=== PATIENT | male | born 1975 | race Caucasian/White ===

== ENCOUNTER 2018-08-12 11:26 | Emergency (ER) | payer OTHER, SELFPAY ==
[2018-08-12 11:29] VITALS: BP 147/113; PULSE 97; RESP 20; TEMP 36.8; O2SAT 95
--- NOTE | 2018-08-12 13:38 | ED_ITS ---
HPI - Headache <PINKY Roca - Last Filed: 08/12/18 21:41> General Chief Complaint: Headache Stated Complaint: HEADACHE, BODY PAIN, NAUSEA Time Seen by Provider: 08/12/18 13:36 Source: patient Mode of arrival: ambulatory Limitations: no limitations History of Present Illness HPI Narrative: 42-year-old male with history of hypertension and melanoma that is a part-time smoker here for complaint of headache that started yesterday and is worse today. 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 He was treated by Oncology in [place] prior to moving appear he just recently moved to the area and has not been established in Oncology. He reports having headaches like this in the past over this when presents as being more severe. He denies any neurological deficits. No fevers no chills. Pain does radiate to the neck. Positive p.o. intake. Related Data Home Medications Medication Instructions Recorded Confirmed Stool Softener 1 dose PO PRN PRN 08/12/18 08/12/18 Vitamin C 1 tab PO DAILY 08/12/18 08/12/18 dexamethasone 4 mg PO BID-QID 08/12/18 08/12/18 hydrochlorothiazide 25 mg PO DAILY 08/12/18 08/12/18 hydrocodone-acetaminophen 1 tab PO TID PRN 08/12/18 08/12/18 ibuprofen 1 dose PO PRN PRN 08/12/18 08/12/18 methadone 20 mg PO Q8H 08/12/18 08/12/18 multivitamin 1 tab PO DAILY 08/12/18 08/12/18 omeprazole 40 mg PO DAILY 08/12/18 08/12/18 pembrolizumab [Keytruda] 1 dose IV DIRECTED 08/12/18 08/12/18 sennosides [senna] 8.6 mg PO BID 08/12/18 08/12/18 trazodone 100 mg PO BEDTIME 08/12/18 08/12/18 Allergies Allergy/AdvReac Type Severity Reaction Status Date / Time No Known Drug Allergies Allergy Verified 08/12/18 11:29 Review of Systems <PINKY Roca - Last Filed: 08/12/18 21:41> Constitutional Denies chills, Denies fever(s), Reports headache(s), Denies lethargy and Denies weakness Eyes Denies change in vision, Denies eye discharge, Denies irritation and Denies loss of vision ENT Ears, Nose, Mouth, and Throat: Denies change in voice, Reports headache(s), Denies neck pain and Denies sore throat Cardiovascular Denies chest pain, Denies irregular heart rhythm, Denies lightheadedness, Denies palpitations, Denies dyspnea, Denies dyspnea on exertion and Denies orthopnea Respiratory Denies cough, Denies dyspnea, Denies dyspnea on exertion and Denies wheezing Gastrointestinal Gastrointestinal: Denies abdominal pain, Denies change in bowel habits, Denies diarrhea, Denies nausea and Denies vomiting Genitourinary Denies hematuria, Denies flank pain, Denies urinary incontinence and Denies urinary urgency Musculoskeletal Denies neck pain Integumentary/Breasts Denies pruritus, Denies erythema, Denies rash and Denies wounds Neurologic Denies confusion, Reports headache(s), Denies loss of vision and Denies weakness Psychiatric Denies anxiety, Denies confusion, Denies depression, Denies homicidal ideation and Denies suicidal ideation Endocrine Denies palpitations Hematologic/Lymphatic Denies easy bruising Allergic/Immunologic Denies wheezing Exam <PINKY Roca - Last Filed: 08/12/18 21:41> Initial Vital Signs Initial Vital Signs: Vital Signs Temperature 98.3 F 08/12/18 11:29 Pulse Rate 97 H 08/12/18 11:29 Respiratory Rate 20 08/12/18 11:29 Blood Pressure 147/113 H 08/12/18 11:29 Pulse Oximetry 95 08/12/18 11:29 Const General: cooperative and well developed Nutritional Appearance: well nourished Orientation: alert, awake, oriented x3 and not confused [facility] Mouth: oral mucosae normal and moist mucous membranes Eyes General: appearance normal, both eyes and all related structures Eyelids: eyelids normal Conjunctivae: conjunctivae normal Sclera: sclerae normal Pupils: PERRL EOM: EOM intact bilaterally Neck Neck: normal visual inspection, trachea midline, No lymphadenopathy, No midline deformity and No JVD Lymphatic: No lymphedema Cardio Rate: regular rate Rhythm: regular rhythm Heart Sounds: no click, no gallops, no murmurs and no rubs GI Inspection: non-distended Palpation: soft, no hepatosplenomegaly, No guarding, No pulsatile mass and No tender Auscultation: normal bowel sounds Neuro General: alert, oriented x3, gait normal and no focal motor deficits Speech: speech normal Sensory Exam: no sensory deficits noted Extrem General: normal to inspection, full ROM, no clubbing, cyanosis or edema, no pedal edema and no calf tenderness <Rhonda Portillo DO - Last Filed: 08/13/18 09:07> Initial Vital Signs Initial Vital Signs: Vital Signs Temperature 98.3 F 08/12/18 11:29 Pulse Rate 97 H 08/12/18 11:29 Respiratory Rate 20 08/12/18 11:29 Blood Pressure 147/113 H 08/12/18 11:29 Pulse Oximetry 95 08/12/18 11:29 Course <PINKY Roca - Last Filed: 08/12/18 21:41> Orders Ordered: Discontinued Medications Diphenhydramine HCl (Benadryl) 25 mg IV NOW ONE Stop: 08/12/18 14:31 Last Admin: 08/12/18 15:16 Dose: 25 mg Hydromorphone HCl (Dilaudid) 1 mg IV NOW ONE Stop: 08/12/18 14:31 Last Admin: 08/12/18 15:18 Dose: 1 mg Sodium Chloride (Normal Saline 0.9%) 1,000 mls @ 1,000 mls/hr IV BOLUS ONE Stop: 08/12/18 15:29 Last Infusion: 08/12/18 16:35 Dose: 0 mls/hr Admin: 08/12/18 15:11 Dose: 1,000 mls/hr Ketorolac Tromethamine (Toradol) 30 mg IV NOW ONE Stop: 08/12/18 14:31 Last Admin: 08/12/18 15:17 Dose: 30 mg Metoclopramide HCl (Reglan) 10 mg IV NOW ONE Stop: 08/12/18 14:31 Last Admin: 08/12/18 15:14 Dose: 10 mg Vital Signs - 8 hr 08/12/18 15:29 08/12/18 16:37 08/12/18 16:48 Temperature 98.4 F Pulse Rate 67 66 Respiratory Rate 18 13 Blood Pressure [Right Arm] 124/98 H 127/82 Pulse Oximetry 94 97 08/12/18 17:14 Temperature Pulse Rate 54 L Respiratory Rate 18 Blood Pressure [Right Arm] 153/85 H Pulse Oximetry 97 <Rhonda Portillo DO - Last Filed: 08/13/18 09:07> Orders Ordered: Discontinued Medications Diphenhydramine HCl (Benadryl) 25 mg IV NOW ONE Stop: 08/12/18 14:31 Last Admin: 08/12/18 15:16 Dose: 25 mg Hydromorphone HCl (Dilaudid) 1 mg IV NOW ONE Stop: 08/12/18 14:31 Last Admin: 08/12/18 15:18 Dose: 1 mg Sodium Chloride (Normal Saline 0.9%) 1,000 mls @ 1,000 mls/hr IV BOLUS ONE Stop: 08/12/18 15:29 Last Infusion: 08/12/18 16:35 Dose: 0 mls/hr Admin: 08/12/18 15:11 Dose: 1,000 mls/hr Ketorolac Tromethamine (Toradol) 30 mg IV NOW ONE Stop: 08/12/18 14:31 Last Admin: 08/12/18 15:17 Dose: 30 mg Metoclopramide HCl (Reglan) 10 mg IV NOW ONE Stop: 08/12/18 14:31 Last Admin: 08/12/18 15:14 Dose: 10 mg Vital Signs - 8 hr 08/12/18 15:29 08/12/18 16:37 08/12/18 16:48 Temperature 98.4 F Pulse Rate 67 66 Respiratory Rate 18 13 Blood Pressure [Right Arm] 124/98 H 127/82 Pulse Oximetry 94 97 08/12/18 17:14 Temperature Pulse Rate 54 L Respiratory Rate 18 Blood Pressure [Right Arm] 153/85 H Pulse Oximetry 97 MDM - Headache <PINKY Roca - Last Filed: 08/12/18 21:41> Lab Data Result diagrams: 08/12/18 15:05 08/12/18 15:05 Lab Results 08/12/18 08/12/18 08/12/18 Range/Units 15:05 15:05 15:05 WBC 14.4 H (4.5-11.0) X10^3/uL RBC 5.28 (4.5-5.9) X10^6/uL Hgb 16.3 (13.5-17.5) g/dL Hct 47.9 (41-53) % MCV 90.8 (80-100) fL MCH 30.8 (26-34) PG MCHC 33.9 (30-36) % RDW 13.9 (11.6-14.8) % Plt Count 236 (150-400) X10^3/uL Neut % (Auto) 71.3 (50-75) % Lymph % (Auto) 18.6 L (25-40) % [place] % (Auto) 9.4 (3-14) % Eos % (Auto) 0.1 L (2-4) % Baso % (Auto) 0.6 (0-2) % Neut # (Auto) 53507 H (9158-5799) /uL PT 11.7 (10.1-12.7) SECONDS INR 1.1 (0.9-1.3) Sodium 143 (137-145) mmol/L Potassium 3.7 (3.4-5.1) mmol/L Chloride 101 (98-107) mmol/L Carbon Dioxide 31 (22-32) mmol/L BUN 28 H (9-20) mg/dL Creatinine 0.70 (0.66-1.25) mg/dL Estimated GFR > 60.0 (>60) mL/min BUN/Creatinine Ratio 40.0 H (6-22) Glucose 121 H (70-100) mg/dL Calcium 9.5 (8.4-10.2) mg/dL Total Bilirubin 1.0 (0.2-1.3) mg/dL AST 38 (17-59) IU/L ALT 62 (21-72) IU/L Alkaline Phosphatase 49 (38-126) U/L Total Protein 7.4 (6.3-8.2) g/dL Albumin 4.4 (3.5-5.0) g/dL Globulin 3.0 (1.7-4.1) g/dL Albumin/Globulin Ratio 1.5 (1.0-2.8) Point of Care Testing Glucose POC [address] scan - head: Radiologist's impression: [address] [address] [address] Scan Report Signed Patient: Ramiro Hawkins SosaAnel#: [id number] : 1975Acct:[id number] Age/Sex: 42 / MDate of Service: 08/12/18 Loc: ED Accession Number: [id number] Procedure: CT head/brain wo con Ordering Provider: Ambrocio Mujica PROCEDURE: CT HEAD/BRAIN WO CON INDICATIONS: Headache with history of brain cancer TECHNIQUE: Noncontrast 4.5 mm thick angled axial sections acquired from the foramen magnum to the vertex, with coronal and sagittal reformats. For radiation dose reduction, the following was used: automated exposure control, adjustment of mA and/or kV according to patient size. COMPARISON: [facility], CT, CT CERVICAL SPINE WO CON, 08/12/2018, 14:30. FINDINGS: Image quality: Excellent. CSF spaces: Basal cisterns are patent. No extra-axial fluid collections. No janes hydrocephalus is seen. There is expansion seen of the posterior horn of the left lateral ventricle, which is attributed to extra-axial dilatation. Brain: Foci of acute intracranial hemorrhage are seen. The most prominent focus is seen within the left occipital region, and a site of apparent prior resection. Adjacent to this, there is a small amount of hemorrhage seen within the posterior horn of the left lateral ventricle, as on series 2 image 61, which is likely intra-articular extension of the hemorrhage. There is also a milder degree of hemorrhage seen involving the right parieto-occipital region. Small areas of apparent intraparenchymal hemorrhage can be seen involving the inferolateral left frontal lobe. Fitzgerald-white matter interface is normal. Skull and face: Calvarium and visualized facial bones are intact, without suspicious lesions. Sinuses: Visualized sinuses and mastoids are clear. IMPRESSION: Areas of acute intraparenchymal hemorrhage are seen. The most prominent of these is seen within the left occipital lobe at a site of apparent prior resection. There is apparent intraventricular extension of this hemorrhage. Please correlate with known patient history and any prior outside imaging studies. Note: Case discussed by telephone with PINKY Roca at 2:52 PM [place] time on August 12, 2018. Dictated by: Mauro Marquez M.D. on 08/12/2018 at 13:49 Approved by: Mauro Marquez M.D. on 08/12/2018 at 13:54 c spine : Radiologist's impression: [address] [place] [address] [id number] [address] Scan Report Signed Patient: Ramiro Hawkins SosamMR#: [id number] : 1975Acct:[id number] Age/Sex: 42 / MDate of Service: 08/12/18 Loc: ED Accession Number: [id number] Procedure: CT cervical spine wo con Ordering Provider: Ambrocio Mujica PROCEDURE: CT CERVICAL SPINE WO CON INDICATIONS: Headache radiating to the neck history of brain cancer TECHNIQUE: Noncontrast 3 mm thick sections acquired from the skull base to the T4 level. Sagittal and coronal reformats were then constructed. For radiation dose reduction, the following was used: automated exposure control, adjustment of mA and/or kV according to patient size. COMPARISON: [facility], CT, CT HEAD/BRAIN WO CON, 08/12/2018, 14:30. FINDINGS: Image quality: This examination is somewhat limited by quantum mottle artifact. Bones: No fractures or dislocations. Visualized superior ribs are intact. Degenerative changes are seen, including moderate to severe disc space narrowing at C5-C6. Milder degenerative changes are seen elsewhere. Soft tissues: Prevertebral soft tissues are normal in thickness. No paravertebral hematomas. No apical pneumothoraces. IMPRESSION: No acute abnormality is seen. Cervical spine degenerative changes are seen, which are more prominent than would be expected for a patient of this relatively young age. Dictated by: Mauro Marquez M.D. on 08/12/2018 at 13:55 Approved by: Mauro Marquez M.D. on 08/12/2018 at 13:56 MDM Narrative Medical decision making narrative: Head CT shows areas of acute inter parenchymal hemorrhage in seen. CBC shows elevated white count and neutrophils. Chem panel was unremarkable. Was unable to locate any prior imaging from [place] to verify how much of this is acute and how much of this is chronic secondary to the melanoma. CT of the neck was obtained was negative. Discussed case with [facility] Stroke team. Dr. Barney accepting patient. Due to presumed acute new bleed Patient is sent to [facility] via airlift for further care and treatment. <Rhonda Portillo, - Last Filed: 08/13/18 09:07> Lab Data Lab Results 08/12/18 08/12/18 08/12/18 Range/Units 15:05 15:05 15:05 WBC 14.4 H (4.5-11.0) X10^3/uL RBC 5.28 (4.5-5.9) X10^6/uL Hgb 16.3 (13.5-17.5) g/dL Hct 47.9 (41-53) % MCV 90.8 (80-100) fL MCH 30.8 (26-34) PG MCHC 33.9 (30-36) % RDW 13.9 (11.6-14.8) % Plt Count 236 (150-400) X10^3/uL Neut % (Auto) 71.3 (50-75) % Lymph % (Auto) 18.6 L (25-40) % [place] % (Auto) 9.4 (3-14) % Eos % (Auto) 0.1 L (2-4) % Baso % (Auto) 0.6 (0-2) % Neut # (Auto) 48801 H (4560-1497) /uL PT 11.7 (10.1-12.7) SECONDS INR 1.1 (0.9-1.3) Sodium 143 (137-145) mmol/L Potassium 3.7 (3.4-5.1) mmol/L Chloride 101 (98-107) mmol/L Carbon Dioxide 31 (22-32) mmol/L BUN 28 H (9-20) mg/dL Creatinine 0.70 (0.66-1.25) mg/dL Estimated GFR > 60.0 (>60) mL/min BUN/Creatinine Ratio 40.0 H (6-22) Glucose 121 H (70-100) mg/dL Calcium 9.5 (8.4-10.2) mg/dL Total Bilirubin 1.0 (0.2-1.3) mg/dL AST 38 (17-59) IU/L ALT 62 (21-72) IU/L Alkaline Phosphatase 49 (38-126) U/L Total Protein 7.4 (6.3-8.2) g/dL Albumin 4.4 (3.5-5.0) g/dL Globulin 3.0 (1.7-4.1) g/dL Albumin/Globulin Ratio 1.5 (1.0-2.8) Point of Care Testing Glucose POC 107 Discharge Plan Departure Patient Disposition: [facility] Clinical Impression: Cerebral parenchymal hemorrhage Discharge Date/Time: 08/12/18 17:15 Interventions: ED Discharge Assessment Last Done: 08/12/18 17:16 Prescriptions: No Action sennosides [senna] 8.6 mg Tablet 8.6 mg PO BID RF: 0 methadone 10 mg Tablet 20 mg PO Q8H RF: 0 hydrocodone-acetaminophen 10-325 mg Tablet 1 tab PO TID PRN (Reason: pain) RF: 0 omeprazole 40 mg Capsule,Delayed Release(Dr/Ec) 40 mg PO DAILY RF: 0 trazodone 100 mg Tablet 100 mg PO BEDTIME RF: 0 dexamethasone 4 mg Tablet 4 mg PO BID-QID RF: 0 hydrochlorothiazide 25 mg Tablet 25 mg PO DAILY RF: 0 multivitamin Tablet 1 tab PO DAILY RF: 0 ibuprofen 200 mg Tablet 1 dose PO PRN PRN (Reason: Pain, Mild) RF: 0 Vitamin C 1 tab PO DAILY RF: 0 pembrolizumab [Keytruda] 25 mg/mL Solution 1 dose IV DIRECTED RF: 0 Stool Softener 1 dose PO PRN PRN (Reason: Constipation) RF: 0 Referrals: [facility] [Provider Group] <Rhonda Portillo DO - Last Filed: 08/13/18 09:07> Cosign ED Attending Tae Attestation: I was immediately available in the department for consultation. Documentation has been reviewed. I agree with assessment and plan.
--- NOTE | 2018-08-12 14:33 | DI.CT.S_ITS ---
PROCEDURE: CT HEAD/BRAIN WO CON INDICATIONS: Headache with history of brain cancer TECHNIQUE: Noncontrast 4.5 mm thick angled axial sections acquired from the foramen magnum to the vertex, with coronal and sagittal reformats. For radiation dose reduction, the following was used: automated exposure control, adjustment of mA and/or kV according to patient size. COMPARISON: [facility], CT, CT CERVICAL SPINE WO CON, 08/12/2018, 14:30. FINDINGS: Image quality: Excellent. CSF spaces: Basal cisterns are patent. No extra-axial fluid collections. No janes hydrocephalus is seen. There is expansion seen of the posterior horn of the left lateral ventricle, which is attributed to extra-axial dilatation. Brain: Foci of acute intracranial hemorrhage are seen. The most prominent focus is seen within the left occipital region, and a site of apparent prior resection. Adjacent to this, there is a small amount of hemorrhage seen within the posterior horn of the left lateral ventricle, as on series 2 image 61, which is likely intra-articular extension of the hemorrhage. There is also a milder degree of hemorrhage seen involving the right parieto-occipital region. Small areas of apparent intraparenchymal hemorrhage can be seen involving the inferolateral left frontal lobe. Fitzgerald-white matter interface is normal. Skull and face: Calvarium and visualized facial bones are intact, without suspicious lesions. Sinuses: Visualized sinuses and mastoids are clear. IMPRESSION: Areas of acute intraparenchymal hemorrhage are seen. The most prominent of these is seen within the left occipital lobe at a site of apparent prior resection. There is apparent intraventricular extension of this hemorrhage. Please correlate with known patient history and any prior outside imaging studies. Note: Case discussed by telephone with PINKY Roca at 2:52 PM [place] time on August 12, 2018. Dictated by: Mauro Marquez M.D. on 08/12/2018 at 13:49 Approved by: Mauro Marquez M.D. on 08/12/2018 at 13:54
--- NOTE | 2018-08-12 14:33 | DI.CT.S_ITS ---
PROCEDURE: CT CERVICAL SPINE WO CON INDICATIONS: Headache radiating to the neck history of brain cancer TECHNIQUE: Noncontrast 3 mm thick sections acquired from the skull base to the T4 level. Sagittal and coronal reformats were then constructed. For radiation dose reduction, the following was used: automated exposure control, adjustment of mA and/or kV according to patient size. COMPARISON: [facility], CT, CT HEAD/BRAIN WO CON, 08/12/2018, 14:30. FINDINGS: Image quality: This examination is somewhat limited by quantum mottle artifact. Bones: No fractures or dislocations. Visualized superior ribs are intact. Degenerative changes are seen, including moderate to severe disc space narrowing at C5-C6. Milder degenerative changes are seen elsewhere. Soft tissues: Prevertebral soft tissues are normal in thickness. No paravertebral hematomas. No apical pneumothoraces. IMPRESSION: No acute abnormality is seen. Cervical spine degenerative changes are seen, which are more prominent than would be expected for a patient of this relatively young age. Dictated by: Mauro Marquez M.D. on 08/12/2018 at 13:55 Approved by: Mauro Marquez M.D. on 08/12/2018 at 13:56
[2018-08-12 15:09] LABS: Add Manual Diff / Slide Review NO; Basophils Percent Auto 0.6 % (0-2); Eosinophils Percent Auto 0.1 % (2-4); Hematocrit 47.9 % (41-53); Hemoglobin 16.3 g/dL (13.5-17.5); Lymphocytes Percent Auto 18.6 % (25-40); Mean Corpuscular HGB Conc 33.9 % (30-36); Mean Corpuscular Hemoglobin 30.8 PG (26-34); Mean Corpuscular Volume 90.8 fL (80-100); Monocytes Percent Auto 9.4 % (3-14); Neutrophils Absolute Auto 10300 /uL (3000-5900); Neutrophils Percent Auto 71.3 % (50-75); Platelet Count 236 X10^3/uL (150-400); Red Blood Cell Count 5.28 X10^6/uL (4.5-5.9); Red Cell Distribution Width 13.9 % (11.6-14.8); White Blood Cell Count 14.4 X10^3/uL (4.5-11.0)
[2018-08-12] MEDS: SODIUM CHLORIDE 0.9% 1,000 ML 1000 ML IV (15:11)
[2018-08-12] MEDS: METOCLOPRAMIDE 10 MG/2 ML INJ IV (15:14)
[2018-08-12] MEDS: diphenhydrAMINE 50 MG/ML VIAL 25 MG IV (15:16)
[2018-08-12] MEDS: KETOROLAC 60 MG/2 ML VIAL 30 MG IV (15:17)
[2018-08-12 15:18] LABS: INR 1.1 (0.9-1.3); Prothrombin Time 11.7 SECONDS (10.1-12.7)
[2018-08-12] MEDS: HYDROMORPHONE 1 MG INJ IV (15:18)
[2018-08-12 15:23] LABS: Alanine Aminotransferase 62 IU/L (21-72); Albumin 4.4 g/dL (3.5-5.0); Albumin Globulin Ratio 1.5 (1.0-2.8); Alkaline Phosphatase 49 U/L (38-126); Aspartate Aminotransferase 38 IU/L (17-59); Blood Urea Nitrogen 28 mg/dL (9-20); Calcium 9.5 mg/dL (8.4-10.2); Carbon Dioxide 31 mmol/L (22-32); Chloride 101 mmol/L (98-107); Estimated Glomerular Filt Rate > 60.0 mL/min (>60); Glucose 121 mg/dL (70-100); HEMOLYSIS < 15 (0-50); Potassium 3.7 mmol/L (3.4-5.1); Sodium 143 mmol/L (137-145); Total Protein 7.4 g/dL (6.3-8.2)
[2018-08-12 15:29] VITALS: BP 124/98; PULSE 67; RESP 18; O2SAT 94
[2018-08-12 16:37] VITALS: BP 127/82; PULSE 66; RESP 13; O2SAT 97
[2018-08-12 16:48] VITALS: TEMP 36.9
[2018-08-12 17:14] VITALS: BP 153/85; PULSE 54; RESP 18; O2SAT 97
== END 2018-08-12 17:15 | disposition short-term general hospital (02) ==
PROVIDERS: Emergency Provider Nurse Practitioner Family
DX: I61.9 Nontraumatic intracerebral hemorrhage, unspecified (principal)
CPT/HCPCS: 36591; 70450; 72125; 80053; 82962; 85025; 85610; 96361; 96374; 96375; 99283; 99284; J1170; J1200; J1885; J2765

== ENCOUNTER 2018-09-22 11:09 | Emergency (ER) | payer MEDICAID, SELFPAY ==
[2018-09-22 11:20] VITALS: BP 126/89; PULSE 66; RESP 18; TEMP 36.3; O2SAT 97; BMI 41.1
[2018-09-22 12:00] VITALS: BP 121/96
--- NOTE | 2018-09-22 12:06 | ED.ABDPAIN ---
HPI - Abdominal Pain <Sadaf Koenig PA-C - Last Filed: 09/22/18 22:15> General Chief Complaint: Abdominal Pain Stated Complaint: FECAL IMPACTION Time Seen by Provider: 09/22/18 12:06 Source: patient and family Mode of arrival: ambulatory Limitations: no limitations History of Present Illness HPI narrative: This 43-year-old male comes in with both of his parents today the due to concern for constipation/fecal impaction. Patient states he thinks it has been 4 days since his last bowel movement, and usually he will go 3-4 days between bowel movements. He states he does not have abdominal pain. He has not had any vomiting or fever. He has not had any urinary symptoms. He states he ate a good sized meal last night. He states maybe he has had some minimal nausea. He denies any new swelling in his abdomen, extremities, chest pain or other new complaints on systems review. His father states that patient had 4 small pieces of stool this morning with a lot of straining. States that there has been no blood in the stool, but did have some bright red blood on toilet paper after a lot of straining. He is on docusate, supposed to be on senna and MiraLax but not taking these. Father notes that they were in [place] for 8 days and return last week, so there were dietary changes and difficult to give medications then. He thinks patient's last bowel movement could have been as much as a week ago aside from this morning. Patient has a history of melanoma with multiple brain mets and history of bleeds and father describes contstipation as an ongoing issue Related Data Home Medications Medication Instructions Recorded Confirmed Vitamin C 1 tab PO DAILY 08/12/18 09/22/18 dexamethasone 4 mg PO BID-QID 08/12/18 09/22/18 hydrocodone-acetaminophen 1 tab PO TID PRN 08/12/18 09/22/18 methadone 20 mg PO Q8H 08/12/18 09/22/18 multivitamin 1 tab PO DAILY 08/12/18 09/22/18 pembrolizumab [Keytruda] 1 dose IV DIRECTED 08/12/18 09/22/18 sennosides [senna] 8.6 mg PO BID 08/12/18 09/22/18 trazodone 100 mg PO BEDTIME 08/12/18 09/22/18 Allergies Allergy/AdvReac Type Severity Reaction Status Date / Time No Known Drug Allergies Allergy Verified 08/12/18 11:29 Review of Systems <Sadaf Koenig PA-C - Last Filed: 09/22/18 22:15> Review of Systems All systems reviewed & are unremarkable except as noted in HPI and below Exam <Sadaf Koenig PA-C - Last Filed: 09/22/18 22:15> Narrative Exam Narrative: GENERAL APPEARANCE: Patient resting comfortably, in no distress. HEENT: PERRL, EOMI, no scleral icterus NECK: Supple LUNGS: Clear to auscultation bilaterally. HEART: Rate and rhythm regular, normal S1 and S2, no S3 or S4. ABDOMEN: Soft, nontender, protuberant/obese but nondistended, bowel sounds present x 4 quadrants, no masses palpable RECTAL: Perianal skin is erythematous. There is a firm mass of stool palpable in the vault (I can palpate the distal tip). Stool is brown with no gross blood. FOB + EXTREMITIES: No edema DERMATOLOGIC: No jaundice or exanthem NEUROLOGIC: Alert with normal speech and coordination Initial Vital Signs Initial Vital Signs: Vital Signs Temperature 97.3 F L 09/22/18 11:20 Pulse Rate 66 09/22/18 11:20 Respiratory Rate 18 09/22/18 11:20 Blood Pressure 126/89 09/22/18 11:20 Pulse Oximetry 97 09/22/18 11:20 <Rhonda Portillo DO - Last Filed: 09/23/18 19:12> Initial Vital Signs Initial Vital Signs: Vital Signs Temperature 97.3 F L 09/22/18 11:20 Pulse Rate 66 09/22/18 11:20 Respiratory Rate 18 09/22/18 11:20 Blood Pressure 126/89 09/22/18 11:20 Pulse Oximetry 97 09/22/18 11:20 Course <Sadaf Koenig PA-C - Last Filed: 09/22/18 22:15> Additional Information: Patient has continued to deny pain and does not appear to be acutely ill, however has passed only tiny fragments of stool with some leakage. XR shows question of developing obstruction. Discussed with patient and family and they were agreeable with CT, labwork. There is no evidence of acute obstruction. Patient does not appear uncomfortable except on rectal exam. We had planned to try enema, but patient and father prefer to return home and try his constipation meds there. Suspect +FOB is due to external irritation as this has been an ongoing issue after straining, no change in H & H Orders Ordered: Discontinued Medications Heparin Sodium (Porcine) (Heparin Lock Port) 500 unit IV PRN PRN PRN Reason: Flush Last Admin: 09/22/18 16:27 Dose: 500 unit Vital Signs - 8 hr 09/22/18 16:14 Pulse Rate 64 Respiratory Rate 15 Blood Pressure [Left Arm] 133/95 H Pulse Oximetry 96 <Rhonda Portillo DO - Last Filed: 09/23/18 19:12> Orders Ordered: Discontinued Medications Heparin Sodium (Porcine) (Heparin Lock Port) 500 unit IV PRN PRN PRN Reason: Flush Last Admin: 09/22/18 16:27 Dose: 500 unit Vital Signs - 8 hr 09/22/18 16:14 Pulse Rate 64 Respiratory Rate 15 Blood Pressure [Left Arm] 133/95 H Pulse Oximetry 96 MDM - Abdominal Pain <Sadaf Koenig PA-C - Last Filed: 09/22/18 22:15> Lab Data Result diagrams: 09/22/18 14:00 09/22/18 14:00 Lab Results 09/22/18 09/22/18 Range/Units 14:00 14:00 WBC 14.7 H (4.5-11.0) X10^3/uL RBC 4.97 (4.5-5.9) X10^6/uL Hgb 15.4 (13.5-17.5) g/dL Hct 44.6 (41-53) % MCV 89.7 (80-100) fL MCH 31.0 (26-34) PG MCHC 34.5 (30-36) % RDW 14.3 (11.6-14.8) % Plt Count 164 (150-400) X10^3/uL Neut % (Auto) 90.1 H (50-75) % Lymph % (Auto) 4.0 L (25-40) % Hemphill % (Auto) 5.5 (3-14) % Eos % (Auto) 0.0 L (2-4) % Baso % (Auto) 0.4 (0-2) % Neut # (Auto) 97135 H (1448-5735) /uL Sodium 139 (137-145) mmol/L Potassium 3.8 (3.4-5.1) mmol/L Chloride 98 (98-107) mmol/L Carbon Dioxide 31 (22-32) mmol/L BUN 19 (9-20) mg/dL Creatinine 0.60 L (0.66-1.25) mg/dL Estimated GFR > 60.0 (>60) mL/min BUN/Creatinine Ratio 31.7 H (6-22) Glucose 148 H (70-100) mg/dL Calcium 8.8 (8.4-10.2) mg/dL Total Bilirubin 0.7 (0.2-1.3) mg/dL AST 32 (17-59) IU/L ALT 73 H (21-72) IU/L Alkaline Phosphatase 48 (38-126) U/L Total Protein 6.1 L (6.3-8.2) g/dL Albumin 3.5 (3.5-5.0) g/dL Globulin 2.6 (1.7-4.1) g/dL Albumin/Globulin Ratio 1.3 (1.0-2.8) Imaging Data CT scan - abdomen: Radiologist's impression: [place] [address] CT Scan Report Signed Patient: Ramiro Hawkins MR#: [id number] : 1975 Acct:[id number] Age/Sex: 43 / M Date of Service: 09/22/18 Loc: ED Accession Number: [id number] Procedure: CT abdomen pelvis w con Ordering Provider: Sadaf Koenig P.A-C PROCEDURE: CT ABDOMEN PELVIS W CON INDICATIONS: ?obstruction, h/o melanoma TECHNIQUE: After the administration of intravenous contrast, 5 mm thick sections acquired from the diaphragm to the symphysis. 5 mm coronal and sagittal reformats were acquired. For radiation dose reduction, the following was used: automated exposure control, adjustment of mA and/or kV according to patient size. COMPARISON: None. FINDINGS: Image quality: Excellent. ABDOMEN: Lung bases: Lung bases are clear. Heart size is normal. Solid organs: Liver is normal in size and enhancement and the left hepatic lobe contains a anterior 2.5 x 3.0 cm cystic structure, water in density with slight irregularity along its margins. The nearby gallbladder is free of inflammation or calcified gallstone. Biliary system is non dilated. Pancreas enhances normally. Spleen is normal in size and enhancement. No adrenal nodules. Kidneys demonstrate normal size and enhancement, without hydronephrosis. Peritoneum and bowel: Bowel loops demonstrate normal wall thickness and caliber. No free fluid or air. Nodes and vessels: No retroperitoneal or mesenteric adenopathy by size criteria. Aorta and inferior vena cava are normal in size. Miscellaneous: No ventral hernias. PELVIS: Genitourinary: Bladder wall thickness is normal. Miscellaneous: No inguinal hernias or adenopathy. Bones: No suspicious bony lesions. No vertebral body compression fractures. IMPRESSION: No intestinal obstruction or perforation is found. No sign of metastatic to his. Incidental notice made of a water density cyst at the left medial hepatic segment near the gallbladder, with slight irregularity along its margins. This could be further assessed with ultrasound if clinically desired. Dictated by: Jose Martin Ram M.D. on 09/22/2018 at 14:59 Approved by: Jose Martin Ram M.D. on 09/22/2018 at 15:02 <Rhonda Portillo DO - Last Filed: 09/23/18 19:12> Lab Data Lab Results 09/22/18 09/22/18 Range/Units 14:00 14:00 WBC 14.7 H (4.5-11.0) X10^3/uL RBC 4.97 (4.5-5.9) X10^6/uL Hgb 15.4 (13.5-17.5) g/dL Hct 44.6 (41-53) % MCV 89.7 (80-100) fL MCH 31.0 (26-34) PG MCHC 34.5 (30-36) % RDW 14.3 (11.6-14.8) % Plt Count 164 (150-400) X10^3/uL Neut % (Auto) 90.1 H (50-75) % Lymph % (Auto) 4.0 L (25-40) % Hemphill % (Auto) 5.5 (3-14) % Eos % (Auto) 0.0 L (2-4) % Baso % (Auto) 0.4 (0-2) % Neut # (Auto) 77177 H (9548-4181) /uL Sodium 139 (137-145) mmol/L Potassium 3.8 (3.4-5.1) mmol/L Chloride 98 (98-107) mmol/L Carbon Dioxide 31 (22-32) mmol/L BUN 19 (9-20) mg/dL Creatinine 0.60 L (0.66-1.25) mg/dL Estimated GFR > 60.0 (>60) mL/min BUN/Creatinine Ratio 31.7 H (6-22) Glucose 148 H (70-100) mg/dL Calcium 8.8 (8.4-10.2) mg/dL Total Bilirubin 0.7 (0.2-1.3) mg/dL AST 32 (17-59) IU/L ALT 73 H (21-72) IU/L Alkaline Phosphatase 48 (38-126) U/L Total Protein 6.1 L (6.3-8.2) g/dL Albumin 3.5 (3.5-5.0) g/dL Globulin 2.6 (1.7-4.1) g/dL Albumin/Globulin Ratio 1.3 (1.0-2.8) Discharge Plan Departure Patient Disposition: Home Clinical Impression: Constipation, Fecal impaction in rectum Discharge Date/Time: 09/22/18 16:35 Interventions: ED Discharge Assessment Last Done: 09/22/18 16:30 Instructions: DI for Constipation Activity Restrictions/Additional Instructions: For your ongoing constipation, please try mixing a dose of MiraLax together with a dose of [id number] Maalox, and 4-6 oz each of prune juice and apple juice. You can do this once daily as needed. After your constipation is relieved, please continue the MiraLax at least once daily. You do have some hard stool in your rectum today though this is not rock hard. It is likely to be tender when you try to pass it, but should be able to pass (you can use tap water with the syringe we gave you to help soften if you would like. Please return as we talked about if you have any acutely worsening symptoms such as vomiting, pain, or fever. Please see your PCP within a couple of days for recheck. Prescriptions: No Action sennosides [senna] 8.6 mg Tablet 8.6 mg PO BID RF: 0 methadone 10 mg Tablet 20 mg PO Q8H RF: 0 hydrocodone-acetaminophen 10-325 mg Tablet 1 tab PO TID PRN (Reason: pain) RF: 0 trazodone 100 mg Tablet 100 mg PO BEDTIME RF: 0 dexamethasone 4 mg Tablet 4 mg PO BID-QID RF: 0 multivitamin Tablet 1 tab PO DAILY RF: 0 Vitamin C 1 tab PO DAILY RF: 0 pembrolizumab [Keytruda] 25 mg/mL Solution 1 dose IV DIRECTED RF: 0 Referrals: Lonny Hill MD [Primary Care Provider] - <Rhonda Portillo DO - Last Filed: 09/23/18 19:12> Cosign ED Attending Shukriature Attestation: I was immediately available in the department for consultation. Documentation has been reviewed. I agree with assessment and plan.
--- NOTE | 2018-09-22 12:19 | DI.RAD.S_ITS ---
PROCEDURE: XR ACUTE ABDOMEN SERIES INDICATIONS: cancer, no bowel movement TECHNIQUE: One view chest and two views of the abdomen were acquired. COMPARISON: None. FINDINGS: Surgical changes and devices: None. Chest: Lungs are clear. Heart size is normal. No pleural effusions. No pneumoperitoneum. Abdomen: Bowel gas pattern demonstrates moderate stool. Small fluid level is noted within the small bowel.. No suspicious calcifications. Visualized solid organ contours appear normal. Bones: No suspicious bony lesions. IMPRESSION: Minimal small bowel fluid level with prominent stool most consistent with obstruction and secondary ileus, with/developing partial small bowel obstruction not completely excluded. Dictated by: Klaudia Alexnader M.D. on 09/22/2018 at 13:20 Approved by: Klaudia Alexander M.D. on 09/22/2018 at 13:21
--- NOTE | 2018-09-22 13:31 | DI.CT.S_ITS ---
PROCEDURE: CT ABDOMEN PELVIS W CON INDICATIONS: ?obstruction, h/o melanoma TECHNIQUE: After the administration of intravenous contrast, 5 mm thick sections acquired from the diaphragm to the symphysis. 5 mm coronal and sagittal reformats were acquired. For radiation dose reduction, the following was used: automated exposure control, adjustment of mA and/or kV according to patient size. COMPARISON: None. FINDINGS: Image quality: Excellent. ABDOMEN: Lung bases: Lung bases are clear. Heart size is normal. Solid organs: Liver is normal in size and enhancement and the left hepatic lobe contains a anterior 2.5 x 3.0 cm cystic structure, water in density with slight irregularity along its margins. The nearby gallbladder is free of inflammation or calcified gallstone. Biliary system is non dilated. Pancreas enhances normally. Spleen is normal in size and enhancement. No adrenal nodules. Kidneys demonstrate normal size and enhancement, without hydronephrosis. Peritoneum and bowel: Bowel loops demonstrate normal wall thickness and caliber. No free fluid or air. Nodes and vessels: No retroperitoneal or mesenteric adenopathy by size criteria. Aorta and inferior vena cava are normal in size. Miscellaneous: No ventral hernias. PELVIS: Genitourinary: Bladder wall thickness is normal. Miscellaneous: No inguinal hernias or adenopathy. Bones: No suspicious bony lesions. No vertebral body compression fractures. IMPRESSION: No intestinal obstruction or perforation is found. No sign of metastatic to his. Incidental notice made of a water density cyst at the left medial hepatic segment near the gallbladder, with slight irregularity along its margins. This could be further assessed with ultrasound if clinically desired. Dictated by: Jose Martin Ram M.D. on 09/22/2018 at 14:59 Approved by: Jose Martin Ram M.D. on 09/22/2018 at 15:02
[2018-09-22 14:11] VITALS: BP 114/80; PULSE 54; RESP 18; O2SAT 95
[2018-09-22 14:15] LABS: Add Manual Diff / Slide Review NO; Basophils Percent Auto 0.4 % (0-2); Hematocrit 44.6 % (41-53); Hemoglobin 15.4 g/dL (13.5-17.5); Mean Corpuscular HGB Conc 34.5 % (30-36); Mean Corpuscular Volume 89.7 fL (80-100); Monocytes Percent Auto 5.5 % (3-14); Neutrophils Absolute Auto 13200 /uL (1500-7000); Neutrophils Percent Auto 90.1 % (50-75); Platelet Count 164 X10^3/uL (150-400); Red Blood Cell Count 4.97 X10^6/uL (4.5-5.9); Red Cell Distribution Width 14.3 % (11.6-14.8); White Blood Cell Count 14.7 X10^3/uL (4.5-11.0)
[2018-09-22 14:30] LABS: Alanine Aminotransferase 73 IU/L (21-72); Albumin 3.5 g/dL (3.5-5.0); Albumin Globulin Ratio 1.3 (1.0-2.8); Alkaline Phosphatase 48 U/L (38-126); Aspartate Aminotransferase 32 IU/L (17-59); BUN Creatinine Ratio 31.7 (6-22); Bilirubin Total 0.7 mg/dL (0.2-1.3); Blood Urea Nitrogen 19 mg/dL (9-20); Calcium 8.8 mg/dL (8.4-10.2); Carbon Dioxide 31 mmol/L (22-32); Chloride 98 mmol/L (98-107); Estimated Glomerular Filt Rate > 60.0 mL/min (>60); Globulin 2.6 g/dL (1.7-4.1); Glucose 148 mg/dL (70-100); HEMOLYSIS 23 (0-50); Potassium 3.8 mmol/L (3.4-5.1); Sodium 139 mmol/L (137-145); Total Protein 6.1 g/dL (6.3-8.2)
[2018-09-22 16:14] VITALS: BP 133/95; PULSE 64; RESP 15; O2SAT 96
== END 2018-09-22 16:35 | disposition home or self-care (01) ==
PROVIDERS: Emergency Provider Internal Medicine; PCP Family Medicine
DX: K56.41 Fecal impaction (principal)
CPT/HCPCS: 74022; 74177; 80053; 85025; 99283; 99285; J1642; Q9967

== ENCOUNTER 2018-11-10 06:37 | Emergency (ER) | payer MEDICAID, SELFPAY ==
[2018-11-10 06:38] VITALS: BP 127/107; PULSE 109; RESP 16; TEMP 37.3; O2SAT 95
--- NOTE | 2018-11-10 06:51 | PC.NURSE ---
Pt is accompanied by father who is his caregiver.
--- NOTE | 2018-11-10 06:57 | DI.RAD.S_ITS ---
PROCEDURE: XR ACUTE ABDOMEN SERIES INDICATIONS: vomiting pain TECHNIQUE: One view chest and two views of the abdomen were acquired. COMPARISON: None. FINDINGS: Surgical changes and devices: Left chest port with the tip projecting in the lower SVC. Chest: Lungs are clear. Heart size is normal. No pleural effusions. No pneumoperitoneum. Abdomen: No pathologic dilated bowel loops. Moderate stool is present. There is a large amount of dense stool projecting in the rectal vault Bones: No suspicious bony lesions. IMPRESSION: Large amount of stool projecting in the rectal vault suggestive of fecal impaction/constipation. No bowel obstruction seen at this time. If the patient's symptoms do not improve, continued surveillance with short interval serial abdominal radiographs could be performed. Low lung volumes. No acute consolidation. Scattered subsegmental atelectasis and/or scarring Dictated by: Tristan Harris M.D. on 11/10/2018 at 7:56 Approved by: Tristan Harris M.D. on 11/10/2018 at 8:00
[2018-11-10 07:22] LABS: Basophils Absolute Auto 0 /uL (0-100); Basophils Percent Auto 0.3 % (0-2); Eosinophils Absolute Auto 0 /uL (0-450); Hemoglobin 13.4 g/dL (13.5-17.5); Lymphocytes Absolute Auto 2500 /uL (1100-4500)
[2018-11-10 07:30] LABS: BUN Creatinine Ratio 17.5 (6-22); Blood Urea Nitrogen 14 mg/dL (9-20); Calcium 9.4 mg/dL (8.4-10.2); Carbon Dioxide 26 mmol/L (22-32); Chloride 97 mmol/L (98-107); Estimated Glomerular Filt Rate > 60.0 mL/min (>60); Glucose 131 mg/dL (70-100); HEMOLYSIS < 15 (0-50); Potassium 3.4 mmol/L (3.4-5.1); Sodium 137 mmol/L (137-145)
[2018-11-10] MEDS: METOCLOPRAMIDE 10 MG/2 ML INJ IV (07:30)
[2018-11-10] MEDS: SODIUM CHLORIDE 0.9% IV (07:30)
[2018-11-10] MEDS: ONDANSETRON IV (07:30)
[2018-11-10 07:31] LABS: Add Manual Diff / Slide Review NO; Hematocrit 39.1 % (41-53); Mean Corpuscular HGB Conc 34.4 % (30-36); Mean Corpuscular Hemoglobin 32.1 PG (26-34); Mean Corpuscular Volume 93.3 fL (80-100); Monocytes Absolute Auto 800 /uL (0-900); Monocytes Percent Auto 7.8 % (3-14); Neutrophils Absolute Auto 6700 /uL (1500-7000); Neutrophils Percent Auto 66.9 % (50-75); Platelet Count 226 X10^3/uL (150-400); Red Blood Cell Count 4.19 X10^6/uL (4.5-5.9); Red Cell Distribution Width 18.1 % (11.6-14.8)
[2018-11-10 07:52] VITALS: BP 154/86; PULSE 95; RESP 12; O2SAT 94
--- NOTE | 2018-11-10 07:54 | PC.NURSE ---
Patient began vomiting yellow liquid, Dr. Ho at bedside. Verbal orders given for IV zofran 8mg and IV reglan 10mg.
--- NOTE | 2018-11-10 07:54 | ED.NAVMDI ---
HPI - Nausea/Vomiting/Diarrhea General Chief complaint: Nausea/Vomiting/Diarrhea Stated complaint: No BM / Weakness / Vomiting Time Seen by Provider: 11/10/18 06:57 Source: patient, family and EMS Mode of arrival: EMS History of Present Illness HPI Narrative: 43-year-old male nonsmoker presents by EMS with family for evaluation of vomiting this morning. 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 He has had decreased bowel movements for the past few days and started bilious vomiting this morning. He does not seem to be in any significant pain. His hospice doctor called ahead and agreed with basic evaluation for possible bowel obstruction. The patient's appetite has been relatively stable and he has not missed any doses of stool softeners. He has never had any abdominal surgeries and no history of obstruction. His mentation has been unsteady decline for some time. MD complaint: nausea and vomiting Description of Vomiting: bilious Description of Diarrhea: none Associated Abdominal Pain: No Relieving factors: none Exacerbating factors: none Associated symptoms: denies other symptoms Related Data Home Medications Medication Instructions Recorded Confirmed ascorbic acid (vitamin C) [Vitamin 500 mg PO DAILY 08/12/18 11/10/18 C] dexamethasone See Rx Instructions .ROUTE .COMPLEX 08/12/18 11/10/18 methadone 20 mg PO TID 08/12/18 11/10/18 multivitamin 1 tab PO DAILY 08/12/18 11/10/18 sennosides [senna] 8.6 mg PO DAILY 08/12/18 11/10/18 trazodone 100 mg PO BEDTIME 08/12/18 11/10/18 chlorthalidone 12.5 mg PO DAILY 11/10/18 11/10/18 docusate sodium See Rx Instructions .ROUTE .COMPLEX 11/10/18 11/10/18 levetiracetam 1,500 mg PO BID 11/10/18 11/10/18 omeprazole 40 mg PO BID 11/10/18 11/10/18 Allergies Allergy/AdvReac Type Severity Reaction Status Date / Time No Known Drug Allergies Allergy Verified 08/12/18 11:29 Review of Systems Constitutional Denies chills, Denies fever(s), Denies lethargy and Denies weakness Eyes Denies change in vision, Denies eye discharge, Denies irritation and Denies loss of vision ENT Ears, Nose, Mouth, and Throat: Denies change in voice, Denies neck pain and Denies sore throat Cardiovascular Denies chest pain, Denies irregular heart rhythm, Denies lightheadedness, Denies palpitations, Denies dyspnea, Denies dyspnea on exertion and Denies orthopnea Respiratory Denies cough, Denies dyspnea, Denies dyspnea on exertion and Denies wheezing Gastrointestinal Gastrointestinal: Denies abdominal pain, Denies change in bowel habits, Denies diarrhea, Reports nausea and Reports vomiting Genitourinary Denies hematuria, Denies flank pain, Denies urinary incontinence and Denies urinary urgency Musculoskeletal Denies neck pain Integumentary/Breasts Denies pruritus, Denies erythema, Denies rash and Denies wounds Neurologic Denies confusion, Denies loss of vision and Denies weakness Psychiatric Denies anxiety, Denies confusion, Denies depression, Denies homicidal ideation and Denies suicidal ideation Endocrine Denies palpitations Hematologic/Lymphatic Denies easy bruising Allergic/Immunologic Denies wheezing [facility] Medical History Constipation (Chronic) HTN (hypertension) (Chronic) 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 Normocephalic. No temporal or scalp tenderness. EYES: Pupils equal round and reactive. Extraocular motions intact. No scleral icterus. No injection or drainage. ENT: Nose without bleeding, purulent drainage or septal hematoma. Throat without erythema, tonsillar hypertrophy or exudate. Uvula midline. Airway patent. NECK: Trachea midline. No JVD or lymphadenopathy. Supple, nontender, no meningeal signs. CARDIOVASCULAR: Regular rate and rhythm without murmurs, gallops, or rubs. RESPIRATORY: Clear to auscultation. Breath sounds equal bilaterally. No wheezes, rales, or rhonchi. GASTROINTESTINAL: Abdomen soft, non-tender, nondistended, decreased bowel sounds. No hepato-splenomegaly, or palpable masses. No guarding. EXTREMITIES: No clubbing, cyanosis, or edema. No joint tenderness, effusion, or edema noted. BACK: Nontender without deformity or crepitance. No flank tenderness. NEURO: Awake, alert, At baseline per father/mother at bedside SKIN: No rash or erythema. Initial Vital Signs Initial Vital Signs: Vital Signs Temperature 99.2 F 11/10/18 06:38 Pulse Rate 109 H 11/10/18 06:38 Respiratory Rate 16 11/10/18 06:38 Blood Pressure 127/107 H 11/10/18 06:38 Pulse Oximetry 95 11/10/18 06:38 Course Orders Ordered: ED Orders 11/10/18 06:30 Basic Metabolic Panel Stat Complete Blood Count AUTO DIFF Stat 11/10/18 06:57 XR acute abdomen series Stat Discontinued Medications Ondansetron HCl 8 mg/ Sodium (Chloride) 54 mls @ 216 mls/hr IV NOW ONE Stop: 11/10/18 07:34 Last Admin: 11/10/18 07:37 Dose: Not Given Ondansetron HCl 8 mg/ Sodium (Chloride) 4 mls @ 16 mls/hr IV NOW ONE Stop: 11/10/18 07:36 Last Infusion: 11/10/18 07:31 Dose: 0 mls/hr Admin: 11/10/18 07:30 Dose: 16 mls/hr Methadone HCl (Methadone) 20 mg PO BID PALOMA Methadone HCl (Methadone) 20 mg PO NOW ONE Stop: 11/10/18 12:16 Metoclopramide HCl (Reglan) 10 mg IV NOW ONE Stop: 11/10/18 07:34 Last Admin: 11/10/18 07:30 Dose: 10 mg Reevaluation(s) Reevaluation #1: patient given enema and had moderate amount of stool with some improvement in symptoms Vital Signs - 8 hr 11/10/18 06:38 11/10/18 07:52 11/10/18 11:20 Temperature 99.2 F Pulse Rate 109 H 95 H 71 Respiratory Rate 16 12 13 Blood Pressure 127/107 H Blood Pressure [Left Arm] 154/86 H 159/100 H Pulse Oximetry 95 94 95 MDM - Nausea/Vomiting/Diarrhea Lab Data Attestation: I reviewed the patient's lab results. Result diagrams: 11/10/18 06:30 11/10/18 06:30 Lab Results 11/10/18 11/10/18 Range/Units 06:30 06:30 WBC 10.0 (4.5-11.0) X10^3/uL RBC 4.19 L (4.5-5.9) X10^6/uL Hgb 13.4 L (13.5-17.5) g/dL Hct 39.1 L (41-53) % MCV 93.3 (80-100) fL MCH 32.1 (26-34) PG MCHC 34.4 (30-36) % RDW 18.1 H (11.6-14.8) % Plt Count 226 (150-400) X10^3/uL Neut % (Auto) 66.9 (50-75) % Lymph % (Auto) 25.0 (25-40) % [place] % (Auto) 7.8 (3-14) % Eos % (Auto) 0.0 L (2-4) % Baso % (Auto) 0.3 (0-2) % Neut # (Auto) 6700 (4905-0177) /uL Lymph # (Auto) 2500 (9379-0625) /uL [place] # (Auto) 800 (0-900) /uL Eos # (Auto) 0 (0-450) /uL Baso # (Auto) 0 (0-100) /uL Sodium 137 (137-145) mmol/L Potassium 3.4 (3.4-5.1) mmol/L Chloride 97 L (98-107) mmol/L Carbon Dioxide 26 (22-32) mmol/L BUN 14 (9-20) mg/dL Creatinine 0.80 (0.66-1.25) mg/dL Estimated GFR > 60.0 (>60) mL/min BUN/Creatinine Ratio 17.5 (6-22) Glucose 131 H (70-100) mg/dL Calcium 9.4 (8.4-10.2) mg/dL Imaging Data Abdominal x-ray: Radiologist's impression: [address] [address] XRay Report Signed Patient: Ramiro Hawkins ConecpciónR#: [id number] : 1975Acct:[id number] Age/Sex: 43 / MDate of Service: 11/10/18 Loc: ED Accession Number: [id number] Procedure: XR acute abdomen series Ordering Provider: Rhonda Portillo D.O. PROCEDURE: XR ACUTE ABDOMEN SERIES INDICATIONS: vomiting pain TECHNIQUE: One view chest and two views of the abdomen were acquired. COMPARISON: None. FINDINGS: Surgical changes and devices: Left chest port with the tip projecting in the lower SVC. Chest: Lungs are clear. Heart size is normal. No pleural effusions. No pneumoperitoneum. Abdomen: No pathologic dilated bowel loops. Moderate stool is present. There is a large amount of dense stool projecting in the rectal vault Bones: No suspicious bony lesions. IMPRESSION: Large amount of stool projecting in the rectal vault suggestive of fecal impaction/constipation. No bowel obstruction seen at this time. If the patient's symptoms do not improve, continued surveillance with short interval serial abdominal radiographs could be performed. Low lung volumes. No acute consolidation. Scattered subsegmental atelectasis and/or scarring Dictated by: Tristan Harris M.D. on 11/10/2018 at 7:56 Approved by: Tristan Harris M.D. on 11/10/2018 at 8:00 Discharge Plan Departure Patient Disposition: Home Clinical Impression: Constipation Qualifiers: Constipation type: unspecified constipation type Qualified Code(s): K59.00 - Constipation, unspecified Vomiting Qualifiers: Vomiting type: unspecified Vomiting Intractability: non-intractable Nausea presence: with nausea Qualified Code(s): R11.2 - Nausea with vomiting, unspecified Instructions: DI for Constipation Activity Restrictions/Additional Instructions: 1. Stay as active 2. Return to your normal diet as much as possible 3. Stay well hydrated 4. A combination of over the counter laxitives including Dulcolax (stimulant laxative) Magnesium Citrate (pulls water into stool) Colace (stool softener) Prescriptions: No Action sennosides [senna] 8.6 mg Tablet 8.6 mg PO DAILY RF: 0 methadone 10 mg Tablet 20 mg PO TID RF: 0 trazodone 100 mg Tablet 100 mg PO BEDTIME RF: 0 dexamethasone 4 mg Tablet See Rx Instructions .ROUTE .COMPLEX RF: 0 multivitamin Tablet 1 tab PO DAILY RF: 0 ascorbic acid (vitamin C) [Vitamin C] 500 mg Tablet 500 mg PO DAILY RF: 0 chlorthalidone 25 mg tablet 12.5 mg PO DAILY RF: 0 levetiracetam 750 mg tablet 1,500 mg PO BID RF: 0 omeprazole 40 mg Capsule,Delayed Release(Dr/Ec) 40 mg PO BID RF: 0 docusate sodium 100 mg Capsule See Rx Instructions .ROUTE .COMPLEX RF: 0 Referrals: Lonny Hill MD [Primary Care Provider] -
--- NOTE | 2018-11-10 08:10 | ED_ITS ---
HPI - Nausea/Vomiting/Diarrhea General Chief complaint: Nausea/Vomiting/Diarrhea Stated complaint: No BM / Weakness / Vomiting Time Seen by Provider: 11/10/18 06:57 Source: patient, family and EMS Mode of arrival: EMS History of Present Illness HPI Narrative: 43-year-old male nonsmoker presents by EMS with family for evaluation of vomiting this morning. 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 He has had decreased bowel movements for the past few days and started bilious vomiting this morning. He does not seem to be in any significant pain. His hospice doctor called ahead and agreed with basic evaluation for possible bowel obstruction. The patient's appetite has been relatively stable and he has not missed any doses of stool softeners. He has never had any abdominal surgeries and no history of obstruction. His mentation has been unsteady decline for some time. MD complaint: nausea and vomiting Description of Vomiting: bilious Description of Diarrhea: none Associated Abdominal Pain: No Relieving factors: none Exacerbating factors: none Associated symptoms: denies other symptoms Related Data Home Medications Medication Instructions Recorded Confirmed ascorbic acid (vitamin C) [Vitamin 500 mg PO DAILY 08/12/18 11/10/18 C] dexamethasone See Rx Instructions .ROUTE .COMPLEX 08/12/18 11/10/18 methadone 20 mg PO TID 08/12/18 11/10/18 multivitamin 1 tab PO DAILY 08/12/18 11/10/18 sennosides [senna] 8.6 mg PO DAILY 08/12/18 11/10/18 trazodone 100 mg PO BEDTIME 08/12/18 11/10/18 chlorthalidone 12.5 mg PO DAILY 11/10/18 11/10/18 docusate sodium See Rx Instructions .ROUTE .COMPLEX 11/10/18 11/10/18 levetiracetam 1,500 mg PO BID 11/10/18 11/10/18 omeprazole 40 mg PO BID 11/10/18 11/10/18 Allergies Allergy/AdvReac Type Severity Reaction Status Date / Time No Known Drug Allergies Allergy Verified 08/12/18 11:29 Review of Systems Constitutional Denies chills, Denies fever(s), Denies lethargy and Denies weakness Eyes Denies change in vision, Denies eye discharge, Denies irritation and Denies loss of vision ENT Ears, Nose, Mouth, and Throat: Denies change in voice, Denies neck pain and Denies sore throat Cardiovascular Denies chest pain, Denies irregular heart rhythm, Denies lightheadedness, Denies palpitations, Denies dyspnea, Denies dyspnea on exertion and Denies orthopnea Respiratory Denies cough, Denies dyspnea, Denies dyspnea on exertion and Denies wheezing Gastrointestinal Gastrointestinal: Denies abdominal pain, Denies change in bowel habits, Denies diarrhea, Reports nausea and Reports vomiting Genitourinary Denies hematuria, Denies flank pain, Denies urinary incontinence and Denies urinary urgency Musculoskeletal Denies neck pain Integumentary/Breasts Denies pruritus, Denies erythema, Denies rash and Denies wounds Neurologic Denies confusion, Denies loss of vision and Denies weakness Psychiatric Denies anxiety, Denies confusion, Denies depression, Denies homicidal ideation and Denies suicidal ideation Endocrine Denies palpitations Hematologic/Lymphatic Denies easy bruising Allergic/Immunologic Denies wheezing [facility] Medical History Constipation (Chronic) HTN (hypertension) (Chronic) 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 Normocephalic. No temporal or scalp tenderness. EYES: Pupils equal round and reactive. Extraocular motions intact. No scleral icterus. No injection or drainage. ENT: Nose without bleeding, purulent drainage or septal hematoma. Throat without erythema, tonsillar hypertrophy or exudate. Uvula midline. Airway patent. NECK: Trachea midline. No JVD or lymphadenopathy. Supple, nontender, no meningeal signs. CARDIOVASCULAR: Regular rate and rhythm without murmurs, gallops, or rubs. RESPIRATORY: Clear to auscultation. Breath sounds equal bilaterally. No wheezes, rales, or rhonchi. GASTROINTESTINAL: Abdomen soft, non-tender, nondistended, decreased bowel sounds. No hepato-splenomegaly, or palpable masses. No guarding. EXTREMITIES: No clubbing, cyanosis, or edema. No joint tenderness, effusion, or edema noted. BACK: Nontender without deformity or crepitance. No flank tenderness. NEURO: Awake, alert, At baseline per father/mother at bedside SKIN: No rash or erythema. Initial Vital Signs Initial Vital Signs: Vital Signs Temperature 99.2 F 11/10/18 06:38 Pulse Rate 109 H 11/10/18 06:38 Respiratory Rate 16 11/10/18 06:38 Blood Pressure 127/107 H 11/10/18 06:38 Pulse Oximetry 95 11/10/18 06:38 Course Orders Ordered: ED Orders 11/10/18 06:30 Basic Metabolic Panel Stat Complete Blood Count AUTO DIFF Stat 11/10/18 06:57 XR acute abdomen series Stat Discontinued Medications Ondansetron HCl 8 mg/ Sodium (Chloride) 54 mls @ 216 mls/hr IV NOW ONE Stop: 11/10/18 07:34 Last Admin: 11/10/18 07:37 Dose: Not Given Ondansetron HCl 8 mg/ Sodium (Chloride) 4 mls @ 16 mls/hr IV NOW ONE Stop: 11/10/18 07:36 Last Infusion: 11/10/18 07:31 Dose: 0 mls/hr Admin: 11/10/18 07:30 Dose: 16 mls/hr Methadone HCl (Methadone) 20 mg PO BID PALOMA Methadone HCl (Methadone) 20 mg PO NOW ONE Stop: 11/10/18 12:16 Metoclopramide HCl (Reglan) 10 mg IV NOW ONE Stop: 11/10/18 07:34 Last Admin: 11/10/18 07:30 Dose: 10 mg Reevaluation(s) Reevaluation #1: patient given enema and had moderate amount of stool with some improvement in symptoms Vital Signs - 8 hr 11/10/18 06:38 11/10/18 07:52 11/10/18 11:20 Temperature 99.2 F Pulse Rate 109 H 95 H 71 Respiratory Rate 16 12 13 Blood Pressure 127/107 H Blood Pressure [Left Arm] 154/86 H 159/100 H Pulse Oximetry 95 94 95 MDM - Nausea/Vomiting/Diarrhea Lab Data Attestation: I reviewed the patient's lab results. Result diagrams: 11/10/18 06:30 11/10/18 06:30 Lab Results 11/10/18 11/10/18 Range/Units 06:30 06:30 WBC 10.0 (4.5-11.0) X10^3/uL RBC 4.19 L (4.5-5.9) X10^6/uL Hgb 13.4 L (13.5-17.5) g/dL Hct 39.1 L (41-53) % MCV 93.3 (80-100) fL MCH 32.1 (26-34) PG MCHC 34.4 (30-36) % RDW 18.1 H (11.6-14.8) % Plt Count 226 (150-400) X10^3/uL Neut % (Auto) 66.9 (50-75) % Lymph % (Auto) 25.0 (25-40) % [place] % (Auto) 7.8 (3-14) % Eos % (Auto) 0.0 L (2-4) % Baso % (Auto) 0.3 (0-2) % Neut # (Auto) 6700 (8773-0875) /uL Lymph # (Auto) 2500 (7655-1671) /uL [place] # (Auto) 800 (0-900) /uL Eos # (Auto) 0 (0-450) /uL Baso # (Auto) 0 (0-100) /uL Sodium 137 (137-145) mmol/L Potassium 3.4 (3.4-5.1) mmol/L Chloride 97 L (98-107) mmol/L Carbon Dioxide 26 (22-32) mmol/L BUN 14 (9-20) mg/dL Creatinine 0.80 (0.66-1.25) mg/dL Estimated GFR > 60.0 (>60) mL/min BUN/Creatinine Ratio 17.5 (6-22) Glucose 131 H (70-100) mg/dL Calcium 9.4 (8.4-10.2) mg/dL Imaging Data Abdominal x-ray: Radiologist's impression: [address] [address] XRay Report Signed Patient: Ramiro Hawkins ConcepciónR#: [id number] : 1975Acct:[id number] Age/Sex: 43 / MDate of Service: 11/10/18 Loc: ED Accession Number: [id number] Procedure: XR acute abdomen series Ordering Provider: Rhonda Portillo D.O. PROCEDURE: XR ACUTE ABDOMEN SERIES INDICATIONS: vomiting pain TECHNIQUE: One view chest and two views of the abdomen were acquired. COMPARISON: None. FINDINGS: Surgical changes and devices: Left chest port with the tip projecting in the lower SVC. Chest: Lungs are clear. Heart size is normal. No pleural effusions. No pneumoperitoneum. Abdomen: No pathologic dilated bowel loops. Moderate stool is present. There is a large amount of dense stool projecting in the rectal vault Bones: No suspicious bony lesions. IMPRESSION: Large amount of stool projecting in the rectal vault suggestive of fecal impaction/constipation. No bowel obstruction seen at this time. If the patient's symptoms do not improve, continued surveillance with short interval serial abdominal radiographs could be performed. Low lung volumes. No acute consolidation. Scattered subsegmental atelectasis and/or scarring Dictated by: Tristan Harris M.D. on 11/10/2018 at 7:56 Approved by: Tristan Harris M.D. on 11/10/2018 at 8:00 Discharge Plan Departure Patient Disposition: Home Clinical Impression: Constipation Qualifiers: Constipation type: unspecified constipation type Qualified Code(s): K59.00 - Constipation, unspecified Vomiting Qualifiers: Vomiting type: unspecified Vomiting Intractability: non-intractable Nausea presence: with nausea Qualified Code(s): R11.2 - Nausea with vomiting, unspecified Instructions: DI for Constipation Activity Restrictions/Additional Instructions: 1. Stay as active 2. Return to your normal diet as much as possible 3. Stay well hydrated 4. A combination of over the counter laxitives including Dulcolax (stimulant laxative) Magnesium Citrate (pulls water into stool) Colace (stool softener) Prescriptions: No Action sennosides [senna] 8.6 mg Tablet 8.6 mg PO DAILY RF: 0 methadone 10 mg Tablet 20 mg PO TID RF: 0 trazodone 100 mg Tablet 100 mg PO BEDTIME RF: 0 dexamethasone 4 mg Tablet See Rx Instructions .ROUTE .COMPLEX RF: 0 multivitamin Tablet 1 tab PO DAILY RF: 0 ascorbic acid (vitamin C) [Vitamin C] 500 mg Tablet 500 mg PO DAILY RF: 0 chlorthalidone 25 mg tablet 12.5 mg PO DAILY RF: 0 levetiracetam 750 mg tablet 1,500 mg PO BID RF: 0 omeprazole 40 mg Capsule,Delayed Release(Dr/Ec) 40 mg PO BID RF: 0 docusate sodium 100 mg Capsule See Rx Instructions .ROUTE .COMPLEX RF: 0 Referrals: Lonny Hill MD [Primary Care Provider] -
[2018-11-10 11:20] VITALS: BP 159/100; PULSE 71; RESP 13; O2SAT 95
[2018-11-10] MEDS: METHADONE 10 MG TABLET 20 MG PO (12:31)
== END 2018-11-10 12:54 | disposition home or self-care (01) ==
PROVIDERS: Emergency Medicine; Emergency Provider Emergency Medicine; PCP Family Medicine
DX: K59.00 Constipation, unspecified (principal); R11.2 Nausea with vomiting, unspecified
CPT/HCPCS: 36591; 74022; 80048; 85025; 96374; 96375; 99283; 99284; J2405; J2765